=== PATIENT | female | born 1970 | race Caucasian/White ===

== ENCOUNTER 2018-01-12 08:31 | Emergency (ER) | payer BC ==
[~2018-01-12] VITALS: Ht 147.3 cm; Wt 80.0 kg
[2018-01-12 08:38] VITALS: BP 139/62; PULSE 83; RESP 16; TEMP 97.9; O2SAT 97
[2018-01-12] MEDS ORDERED: AMLO5TAB2 PO (09:11)
[2018-01-12] MEDS ORDERED: CELE10TA PO (09:11)
--- NOTE | 2018-01-12 09:17 | PD ---
HPI Chief Complaint: Pain: Acute or Chronic Time Seen by Provider: 09:16 Travel History International Travel<30 days: No Contact w/Intl Traveler<30days: No Traveled to known affect area: No History of Present Illness HPI 47-year-old female came to the emergency room with history of right flank pain that as per the patient has been going on for past 2-3 weeks. The patient says the pain has been intermittent. It gets worse if she is sitting for a long time and it alleviates if she stands up. No history of fever or chills. No history of hematuria. She had this kind of pain once before but never came to the emergency room or a doctor to be evaluated. No history of trauma. Patient works in a snf. No history of kidney stones in the past. No history of hematuria, dysuria. Vital signs are stable. When I went in the room she was sitting comfortably on the phone checking messages. However upon asking patient says her pain is 8 out of 10. She has not taken any medications for pain at home. Patient says that she was at work and was complaining about the pain in some of her colleagues that this could be kidney stone and hence she is here. [facility] Past Medical History Narrative Medical List of her past medical, surgical, social and family history is reviewed from the nursing note. Anxiety: Yes Cardiovascular Problems: Yes Hypertension: Yes Migraines: Yes Tetanus Vaccination: Unknown Influenza Vaccination: Yes ?: Not Tubal Ligation: Yes (AND REVERSAL) Past Surgical History Tonsillectomy: Yes Other Surgery: Yes (BILATERAL CARPAL TUNNEL SURGERY) Social History Alcohol Use: Yes (OCCASIONALLY) Tobacco Use: No Substance Use: No Allergies-Medications (Allergen,Severity, Reaction): Coded Allergies: Penicillins (Verified Allergy, Unknown, UNKNOWN, 01/12/18) PT SAID HER MOM TOLD HER SHE IS ALLERGIC TO IT aspirin (Verified Allergy, Unknown, UNKNOWN, 01/12/18) PT SAID HER MOM TOLD HER SHE IS ALLERGIC TO IT Comments List of her allergies reviewed from the nursing note Reported Meds & Prescriptions Reported Meds & Active Scripts Active Reported Celexa (Citalopram Hydrobromide) 10 Mg Tab 5 Mg PO DAILY Amlodipine (Amlodipine Besylate) 5 Mg Tab 5 Mg PO DAILY Narrative Medication List of her home medications reviewed from the nursing note Review of Systems Except as stated in HPI: all other systems reviewed are Neg Genitourinary: Positive: Flank Pain Physical Exam Narrative GENERAL: Awake, alert, obese, mild distress SKIN: Focused skin assessment warm/dry. HEAD: Atraumatic. Normocephalic. EYES: Pupils equal and round. No scleral icterus. No injection or drainage. ENT: No nasal bleeding or discharge. Mucous membranes pink and moist. NECK: Trachea midline. No JVD. CARDIOVASCULAR: Regular rate and rhythm. No murmur appreciated. RESPIRATORY: No accessory muscle use. Clear to auscultation. Breath sounds equal bilaterally. GASTROINTESTINAL: Abdomen soft, non-tender, nondistended. Hepatic and splenic margins not palpable. MUSCULOSKELETAL: No obvious deformities. No clubbing. No cyanosis. No edema. Moderate pain on deep palpation at the right CVA NEUROLOGICAL: Awake and alert. No obvious cranial nerve deficits. Motor grossly within normal limits. Normal speech. PSYCHIATRIC: Appropriate mood and affect; insight and judgment normal. Data Data Last Documented VS Vital Signs Date Time Temp Pulse Resp B/P (MAP) Pulse Ox O2 Delivery O2 Flow Rate FiO2 01/12/18 08:38 97.9 83 16 139/62 (87) 97 Orders Orders Urinalysis - C+S If Indicated (01/12/18 08:41) Ed Urine Pregnancytest Poc (01/12/18 08:41) Complete Blood Count With Diff (01/12/18 09:23) Basic Metabolic Panel (Bmp) (01/12/18 09:23) Ct Abd/Pel W/O Iv Contrast (01/12/18 ) Ketorolac Inj (Toradol Inj) (01/12/18 09:30) Labs Laboratory Tests Test 01/12/18 08:45 01/12/18 09:45 Urine Color LIGHT-YELLOW Urine Turbidity CLEAR Urine pH 7.5 Urine Specific [place] 1.006 Urine Protein NEG mg/dL Urine Glucose (UA) NEG mg/dL Urine Ketones NEG mg/dL Urine Occult Blood NEG Urine Nitrite NEG Urine Bilirubin NEG Urine Urobilinogen LESS THAN 2.0 MG/DL Urine Leukocyte Esterase NEG Urine RBC LESS THAN 1 /hpf Urine Squamous Epithelial Cells <1 /hpf Urine Bacteria RARE /hpf Microscopic Urinalysis Comment CULT NOT INDICATED White Blood Count 7.6 TH/MM3 Red Blood Count 4.59 MIL/MM3 Hemoglobin 13.7 GM/DL Hematocrit 40.9 % Mean Corpuscular Volume 89.1 FL Mean Corpuscular Hemoglobin 29.7 PG Mean Corpuscular Hemoglobin Concent 33.4 % Red Cell Distribution Width 13.4 % Platelet Count 365 TH/MM3 Mean Platelet Volume 8.2 FL Neutrophils (%) (Auto) 72.8 % Lymphocytes (%) (Auto) 17.2 % Monocytes (%) (Auto) 8.6 % Eosinophils (%) (Auto) 0.7 % Basophils (%) (Auto) 0.7 % Neutrophils # (Auto) 5.5 TH/MM3 Lymphocytes # (Auto) 1.3 TH/MM3 Monocytes # (Auto) 0.7 TH/MM3 Eosinophils # (Auto) 0.1 TH/MM3 Basophils # (Auto) 0.1 TH/MM3 CBC Comment DIFF FINAL Differential Comment MDM Medical Decision Making Medical Screen Exam Complete: Yes Emergency Medical Condition: Yes Medical Record Reviewed: Yes Differential Diagnosis Musculoskeletal pain, renal colic Narrative Course 9:56 AM UA is negative. Awaiting for blood test and the CT to be done and resulted. Patient is getting pain medication. 10:31 AM CBC is negative. Awaiting for the chemistry. CAT scan is negative for ureteral colic. If the BMP is within normal limit patient will be discharged home. Procedures EKG Prior to Arrival: No Diagnosis Primary Impression: Lumbar radicular pain Additional Impression: Musculoskeletal pain Referrals: Primary Care Physician 2 days Additional Instructions: Take the medication as per the prescription direction. Do not lift anything heavy. Back rest. Return to the ER if condition worsens or any other new concerns. Otherwise follow-up with your primary care. If the symptoms continue then your primary care may have to order an outpatient MRI. Med/Other Pt SpecificInfo: Prescription(s) given Scripts Cyclobenzaprine (Flexeril) 5 Mg Tab 5 MG PO TID for Muscle Spasm, #15 TAB 0 Refills Prov: Lilly Worrell MD 01/12/18 Ibuprofen (Ibuprofen) 600 Mg Tab 600 MG PO Q6H Y for Pain/Inflammation, #40 TAB 0 Refills Prov: Lilly Worrell MD 01/12/18 Disposition: 01 DISCHARGE HOME Condition: Stable Lilly Worrell MD January 12, 2018 09:17
[2018-01-12] MEDS ORDERED: KETOROLAC TROMETHAMINE 30 MG/ML (IVP) VIAL IV PUSH ONE (09:30)
[2018-01-12 09:33] LABS: BACTERIA, URINE RARE /hpf; BILIRUBIN, URINE NEG (NEG); BLOOD, URINE NEG (NEG); GLUCOSE,URINE NEG (NEG); KETONE, URINE NEG (NEG); NITRITE,URINE NEG (NEG); PH, URINE 7.5 (5.0-8.5); SQUAMOUS EPITHELIAL CELL URINE <1 /hpf (0-5); URINE COLOR LIGHT-YELLOW (YELLW/STRAW); URINE LEUKOCYTE ESTERASE NEG (NEG)
[2018-01-12 10:00] LABS: AUTOMATED NEUTROPHIL # 5.5 TH/MM3 (1.8-7.7); BASOPHIL # 0.1 TH/MM3 (0-0.2); BASOPHIL % 0.7 % (0.0-2.0); EOSINOPHIL # 0.1 TH/MM3 (0-0.4); EOSINOPHIL % 0.7 % (0.0-4.0); HEMATOCRIT 40.9 % (35.0-46.0); HEMOGLOBIN 13.7 GM/DL (11.6-15.3); LYMPH % 17.2 % (9.0-44.0); LYMPHOCYTE # 1.3 TH/MM3 (1.0-4.8); MEAN CELL VOLUME 89.1 FL (80.0-100.0); MEAN CORPUSCULAR HEMOGLOBIN 29.7 PG (27.0-34.0); MEAN CORPUSCULAR HGB CONC 33.4 % (32.0-36.0); MEAN PLATELET VOLUME 8.2 FL (7.0-11.0); MONO % 8.6 % (0.0-8.0); MONOCYTE # 0.7 TH/MM3 (0-0.9); NEUT % 72.8 % (16.0-70.0); PLATELET COUNT 365 TH/MM3 (150-450); RED BLOOD COUNT 4.59 MIL/MM3 (4.00-5.30); RED CELL DISTRIBUTION WIDTH 13.4 % (11.6-17.2); WHITE BLOOD COUNT 7.6 TH/MM3 (4.0-11.0)
--- NOTE | 2018-01-12 10:27 | RADRPT ---
EXAM DATE/TIME: 01/12/2018 09:59 [place] COMPARISON: No previous studies available for comparison. INDICATIONS : Right flank pain. ORAL CONTRAST: No oral contrast ingested. RADIATION DOSE: 18.60 CTDIvol (mGy) MEDICAL HISTORY : Cardiovascular disease. Hypertension. SURGICAL HISTORY : Tubal ligation and reversal ENCOUNTER: Initial ACUITY: 3 weeks PAIN SCALE: 4/10 LOCATION: Right flank TECHNIQUE: Volumetric scanning of the abdomen and pelvis was performed. Using automated exposure control and ad justment of the mA and/or kV according to patient size, radiation dose was kept as low as reasonably achievable to obtain optimal diagnostic quality images. DICOM format image data is available electro nically for review and comparison. FINDINGS: Lung bases are clear. Osseous structures are intact. There is small hiatal hernia. Liver, gallbladder , spleen, pancreas, adrenals, kidneys, urinary bladder, uterus and ovaries are unremarkable. The smal l bowel, large bowel and appendix are unremarkable. No free fluid or free air. There is no evidence o f hydronephrosis or nephrolithiasis. CONCLUSION: Small hiatal hernia. No inflammatory changes, nephrolithiasis or bowel obstruction identified. Stuart Lainez MD on January 12, 2018 at 10:22 Board Certified Radiologist. This report was verified electronically.
[2018-01-12] MEDS ORDERED: IBUP-232 PO (10:34)
[2018-01-12] MEDS ORDERED: CYCL5TAB PO (10:34)
[2018-01-12 10:44] LABS: CALCIUM 8.7 MG/DL (8.5-10.1); CREATININE 0.57 MG/DL (0.50-1.00)
[2018-01-12 10:45] LABS: BICARBONATE 28.8 MEQ/L (21.0-32.0)
== END 2018-01-12 11:06 | disposition home or self-care (01) ==
LOC: NEPD 08:31
DX: M54.5 Low back pain (principal)
CPT/HCPCS: 74176; 80048; 81001; 84703; 85025; 96374; 99284; J1885